=== PATIENT | female | born 1995 | race Caucasian/White ===

== ENCOUNTER → 2022-01-02 15:34 | Outpatient (CLI) | payer OTHER, SELFPAY ==
--- NOTE | 2022-01-02 15:35 | DI.US.S_ITS ---
PROCEDURE: US OB <= 14 WEEKS FETUS INDICATIONS: DATES OUTSIDE/PRIOR DATING DATA: Last menstrual period (LMP): 10/15/2021. LMP-based estimated date of delivery ([place]): 07/22/2022. First dating scan (date and location): 01/02/2022 at . Estimated date of delivery ([place]) from first dating scan: 07/25/2022. TECHNIQUE: Real-time scanning was performed of the fetus and maternal pelvic organs, with image documentation. Endovaginal scanning was also performed to better visualize the fetus and maternal ovaries. COMPARISON: None. FINDINGS: There is a single living IUP with an estimated gestational age 10 weeks 6 days. heart tone is present with heart rate 165 BPM. There is a normal appearing yolk sac. No perigestational bleed. Maternal organs: Ovaries are not imaged. IMPRESSION: 1. A single living intrauterine gestation with an estimated gestational age of 10 weeks 6 days corresponding to ultrasound [place] 07/25/2022. We strive to produce accurate, complete, and clear reports of imaging services. To assist us in improving patient care, this report was composed using standard report templates and voice recognition software. Therefore, it may contain abnormal punctuation, insertions and/or omissions. Occasional wrong-word or sound-alike substitutions may occur. Though we review the report and make efforts to correct it, we do recommend that the report be read carefully in proper context to recognize any text inaccuracies. Dictated by: Dayton Paige M.D. on 01/02/2022 at 17:54 Approved by: Dayton Paige M.D. on 01/02/2022 at 17:57
== END ==
PROVIDERS: Referring Provider Obstetrics & Gynecology; Visit Provider Obstetrics & Gynecology
DX: Z34.81 Encounter for supervision of other normal pregnancy, first trimester (principal); Z3A.10 10 weeks gestation of pregnancy
CPT/HCPCS: 76801; 76817

== ENCOUNTER → 2022-01-21 10:15 | Outpatient (CLI) | payer OTHER, SELFPAY ==
[2022-01-21 18:32] LABS: Add Manual Diff / Slide Review NO; Basophils Absolute Auto 0 /uL (0-100); Basophils Percent Auto 0.4 % (0-2); Eosinophils Absolute Auto 100 /uL (0-450); Eosinophils Percent Auto 0.8 % (2-4); Hematocrit 32.5 % (36-46); Hemoglobin 10.7 g/dL (12.0-16.0); Lymphocytes Absolute Auto 1000 /uL (1100-4500); Lymphocytes Percent Auto 15.9 % (25-40); Mean Corpuscular Hemoglobin 24.9 PG (26-34); Mean Corpuscular Volume 75.5 fL (80-100); Monocytes Absolute Auto 400 /uL (0-900); Monocytes Percent Auto 6.4 % (3-14); Neutrophils Absolute Auto 4900 /uL (1500-7000); Neutrophils Percent Auto 76.5 % (50-75); Platelet Count 184 X10^3/uL (150-400); Red Blood Cell Count 4.31 X10^6/uL (4.0-5.2); Red Cell Distribution Width 19.4 % (11.6-14.8); White Blood Cell Count 6.4 X10^3/uL (4.5-11.0)
[2022-01-21 20:11] LABS: HIV 1 & 2 Ab/Ag 4th Gen Combo NEGATIVE (NEGATIVE); Hep C Virus Ab w/Reflex Quant NEGATIVE s/c (NEGATIVE); Hepatitis B Surface Antigen NEGATIVE s/c (NEGATIVE); Rubella Antibody IgG 1.4 IU/mL (>15)
[2022-01-23 05:34] LABS: RPR Screen Non Reactive (Non Reactive)
[2022-01-23 09:09] LABS: Varicella IgG Antibody <135 index (Immune >165)
== END ==
PROVIDERS: Referring Provider Obstetrics & Gynecology; Visit Provider Obstetrics & Gynecology
DX: Z34.81 Encounter for supervision of other normal pregnancy, first trimester (principal)
CPT/HCPCS: 36415; 80055; 86787; 86803; 86850; 86900; 86901; 87389

== ENCOUNTER → 2022-03-13 15:04 | Outpatient (CLI) | payer OTHER, SELFPAY ==
--- NOTE | 2022-03-13 15:05 | DI.US.S_ITS ---
PROCEDURE: US OB >= 14 WEEKS FETUS INDICATIONS: 20 week anatomy scan OUTSIDE/PRIOR DATING DATA: Last menstrual period (LMP): 10/15/2021 LMP-based estimated date of delivery ([place]): 07/22/2022 First dating scan (date and location): 01/02/2022 Estimated date of delivery ([place]) from first dating scan: 07/25/2022 The calculations are made using the study generated [place]TE of 07/25/2022. TECHNIQUE: Real-time scanning was performed of the fetus, with image documentation and biometric measurements. Endovaginal scanning: Not indicated COMPARISON: [facility], OB <= 14 WEEKS FETUS, 01/02/2022, 15:39. FINDINGS: General: A single living intrauterine gestation is present. Presentation: Vertex. Placenta: Placental position is anterior, without previa. Amniotic fluid index: 11.3 cm, normal range is 5-24 cm. Single deepest vertical pocket is 4.8 cm. heart rate: 152 beats per minute. Maternal cervical canal: 3.2 cm long. Normal lower limit is 2.5 cm. biometrics: Biparietal diameter: 4.8 cm, 20 weeks, 3 days. Head circumference: 18.1 cm, 20 weeks, 4 days. Abdominal circumference: 15.5 cm, 20 weeks, 5 days. Femur length: 3.8 cm, 22 weeks, 1 day Clinically estimated gestational age: 20 weeks, 6 days Composite gestational age from present scan: 21 weeks, 0 day. Estimated weight and percentile: Not evaluated. Anatomic survey: Neuro: Ventricles are non-dilated at less than 10 mm. Cisterna magna is normal at 3-11 mm. Cerebellum is normal in size and morphology. Nuchal skin fold: Normal at less than 6 mm between 14-21 weeks gestational age. Face: Nose and lips, facial profile are not well seen. Spine: No evidence for spina bifida. Heart: 4-chambered heart and outflow tracts are not well seen. Diaphragm: Diaphragm is not well seen. Stomach: Left-sided stomach is present. Kidneys: No hydronephrosis. Normal is less than 5 mm in 2nd trimester, less than 7 mm in 3rd trimester. Cord: 3-vessel cord has orthotopic insertion. Bladder: Normal in size. Extremities: All 4 extremities identified. IMPRESSION: 1. Single live intrauterine gestation with fetus in vertex presentation. heart rate is 152 beats per minute. Normal amount of amniotic fluid. Normal growth. 2. facial profile, cardiac structures and diaphragm are suboptimally seen due to position. Rest of the anatomic survey is normal. We strive to produce accurate, complete, and clear reports of imaging services. To assist us in improving patient care, this report was composed using standard report templates and voice recognition software. Therefore, it may contain abnormal punctuation, insertions and/or omissions. Occasional wrong-word or sound-alike substitutions may occur. Though we review the report and make efforts to correct it, we do recommend that the report be read carefully in proper context to recognize any text inaccuracies. Dictated by: Jarret Castillo M.D. on 03/13/2022 at 16:16 Approved by: Jarret Castillo M.D. on 03/13/2022 at 16:19
== END ==
PROVIDERS: Referring Provider Obstetrics & Gynecology; Visit Provider Obstetrics & Gynecology
DX: Z34.82 Encounter for supervision of other normal pregnancy, second trimester (principal); Z3A.21 21 weeks gestation of pregnancy
CPT/HCPCS: 76811

== ENCOUNTER → 2022-03-21 08:22 | Outpatient (CLI) | payer OTHER, SELFPAY | PROVIDERS: Visit Provider Obstetrics & Gynecology | DX: Z34.81 Encounter for supervision of other normal pregnancy, first trimester (principal) | CPT/HCPCS: 87086 ==

== ENCOUNTER → 2022-04-05 15:41 | Outpatient (CLI) | payer OTHER, SELFPAY ==
--- NOTE | 2022-04-05 15:42 | DI.US.S_ITS ---
PROCEDURE: US OB FOLLOW UP INDICATIONS: FOLLOW UP ANATOMY OUTSIDE/PRIOR DATING DATA: Last menstrual period (LMP): 10/15/2021. LMP-based estimated date of delivery ([place]): 07/22/2022. First dating scan (date and location): 01/02/2022. Estimated date of delivery ([place]) from first dating scan: 07/25/2022. The calculations are made using the ultrasound [place]TE of 07/25/2022. TECHNIQUE: Real-time scanning was performed of the fetus, with image documentation. COMPARISON: [facility], US, US OB >= 14 WEEKS FETUS, 03/13/2022, 15:22. FINDINGS: General: A single living intrauterine gestation is present. Presentation: Variable. Placenta: Placental position is anterior, without previa. Amniotic fluid index: 16.2 cm, normal range is 5-24 cm. Single deepest vertical pocket is 5.6 cm. heart rate: 145 beats per minute. Maternal cervical canal: 3.8 cm long. Normal lower limit is 2.5 cm. Clinically estimated gestational age: 24 weeks 4 days Face: Nose and lips, facial profile are grossly normal. Heart: Not well seen. Due to body habitus and acoustic windows. Diaphragm: Diaphragm is intact. IMPRESSION: 1. [place] living intrauterine at 24 weeks 4 days based on prior dating. 2. Normal placenta and amniotic fluid. 3. facial structures and diaphragm are normal in appearance. The cardiac structures are again not well seen. We strive to produce accurate, complete, and clear reports of imaging services. To assist us in improving patient care, this report was composed using standard report templates and voice recognition software. Therefore, it may contain abnormal punctuation, insertions and/or omissions. Occasional wrong-word or sound-alike substitutions may occur. Though we review the report and make efforts to correct it, we do recommend that the report be read carefully in proper context to recognize any text inaccuracies. Dictated by: Daniel Urena M.D. on 04/05/2022 at 17:10 Approved by: Daniel Urena M.D. on 04/05/2022 at 17:14
== END ==
PROVIDERS: Referring Provider Obstetrics & Gynecology; Visit Provider Obstetrics & Gynecology
DX: Z36.2 Encounter for other antenatal screening follow-up (principal); Z3A.24 24 weeks gestation of pregnancy
CPT/HCPCS: 76816

== ENCOUNTER → 2022-04-18 11:17 | Outpatient (CLI) | payer OTHER, SELFPAY | PROVIDERS: Visit Provider Obstetrics & Gynecology | DX: Z34.82 Encounter for supervision of other normal pregnancy, second trimester (principal); Z3A.26 26 weeks gestation of pregnancy | CPT/HCPCS: 87086 ==

== ENCOUNTER → 2022-04-18 11:18 | Outpatient (CLI) | payer OTHER, SELFPAY ==
[2022-04-18 13:42] LABS: Hematocrit 33.7 % (36-46); Hemoglobin 11.4 g/dL (12.0-16.0)
[2022-04-18 14:29] LABS: GTT (PREG) 1 Hour PP 50gm Dose 93 mg/dL (76-139)
[2022-04-18 19:40] LABS: HEMOLYSIS < 15 (0-50); Iron 63 ug/dL (37-170)
[2022-04-18 19:50] LABS: Percent Iron Saturation 15 % (15-50); Total Iron Binding Capacity 413 ug/dL (265-497); Transferrin 330 mg/dL (206-381)
== END ==
PROVIDERS: Obstetrics & Gynecology; Referring Provider Obstetrics & Gynecology; Visit Provider Obstetrics & Gynecology
DX: O99.012 Anemia complicating pregnancy, second trimester (principal); Z3A.26 26 weeks gestation of pregnancy
CPT/HCPCS: 36415; 82950; 83540; 83550; 85014; 85018; 87086

== ENCOUNTER → 2022-05-08 15:49 | Outpatient (CLI) | payer OTHER, SELFPAY ==
--- NOTE | 2022-05-08 15:50 | DI.US.S_ITS ---
PROCEDURE: US OB FOLLOW UP INDICATIONS: Anatomy scans incomplete OUTSIDE/PRIOR DATING DATA: Last menstrual period (LMP): 10/15/2021. LMP-based estimated date of delivery ([place]): 07/22/2022. First dating scan (date and location): 01/02/2022. Estimated date of delivery ([place]) from first dating scan: 07/25/2022. TECHNIQUE: Real-time scanning was performed of the fetus, with image documentation and biometric measurements. Endovaginal scanning: None COMPARISON: [facility], OB FOLLOW UP, 04/05/2022, 16:05. FINDINGS: General: A single living intrauterine gestation is present. Presentation: Vertex. Placenta: Placental position is anterior , without previa. Amniotic fluid index: 14.4 cm, normal range is 5-24 cm. Single deepest vertical pocket is 4.2 cm. heart rate: 139 beats per minute. Maternal cervical canal: 3.3 cm long. Normal lower limit is 2.5 cm. Anatomic survey: Left ventricular echogenic focus noted. Cardiac views are otherwise within normal limits mint P. Remaining visualized anatomy unremarkable IMPRESSION: Single live intrauterine consistent with 29 week 2 day gestation. Suggestion of left ventricular echogenic focus in. Otherwise, cardiac views are within normal limits Approved by: Gil Maher M.D. on 05/08/2022 at 16:38
== END ==
PROVIDERS: Referring Provider Obstetrics & Gynecology; Visit Provider Obstetrics & Gynecology
DX: Z36.2 Encounter for other antenatal screening follow-up (principal); Z3A.29 29 weeks gestation of pregnancy
CPT/HCPCS: 76816

== ENCOUNTER → 2022-05-27 15:22 | Outpatient (CLI) | payer OTHER, SELFPAY ==
[2022-05-27 17:18] LABS: Alanine Aminotransferase 19 IU/L (<35); Albumin 3.4 g/dL (3.5-5.0); Alkaline Phosphatase 117 U/L (38-126); Aspartate Aminotransferase 20 IU/L (14-36); BUN Creatinine Ratio 27.9 (6-22); Bilirubin Total 0.3 mg/dL (0.2-1.3); Blood Urea Nitrogen 12 mg/dL (7-17); Calcium 9.2 mg/dL (8.4-10.2); Carbon Dioxide 23 mmol/L (22-32); Chloride 105 mmol/L (98-107); Estimated Glomerular Filt Rate > 60 mL/min (>60); Globulin 3.2 g/dL (1.7-4.1); Glucose 82 mg/dL (70-100); HEMOLYSIS < 15 (0-50); Potassium 4.2 mmol/L (3.4-5.1); Sodium 134 mmol/L (137-145); Total Protein 6.6 g/dL (6.3-8.2)
[2022-05-27 17:19] LABS: Albumin Globulin Ratio 1.1 (1.0-2.8)
== END ==
PROVIDERS: Referring Provider Physician Assistant Medical; Visit Provider Physician Assistant Medical
DX: O99.719 Diseases of the skin and subcutaneous tissue complicating pregnancy, unspecified trimester (principal); L29.9 Pruritus, unspecified
CPT/HCPCS: 36415; 80053; 82239

== ENCOUNTER 2022-06-06 16:19 | Outpatient (CLI) | payer OTHER, SELFPAY ==
[2022-06-09 13:28] LABS: Bile Acids 2.2 umol/L (0.0-10.0)
[2022-06-17 18:02] LABS: Appearance Urine UA CLEAR; Bilirubin Urine UA NEGATIVE (NEGATIVE); Color Urine UA YELLOW; Glucose Urine UA NEGATIVE (Negative); Ketones Urine UA NEGATIVE (NEGATIVE); Leukocyte Esterase Urine UA NEGATIVE (NEGATIVE); Nitrite Urine UA NEGATIVE (Negative); Occult Blood Urine UA TRACE-INTACT (Negative); Protein Urine UA NEGATIVE (Negative); Specific Gravity Urine UA <=1.005 (1.000-1.035); Urobilinogen Urine UA 0.2 E.U./dL (0.2)
[2022-06-17 18:08] LABS: pH Urine UA 6.5 (4.5-8.0)
[2022-06-17 18:18] LABS: Bacteria Urine Few (2-10); Culture Indicated Urine Cult Not Indicated; RBC Urine 1-5/HPF (0-5/HPF); Squamous Epithelial Cell Urine 5-10 /HPF (0-5/HPF); WBC Urine 1-5/HPF (0-5/HPF)
[2022-06-17] MEDS: LOPERAMIDE 2 MG CAPSULE 4 MG PO (19:36)
== END 2022-06-17 19:57 | disposition home or self-care (01) ==
LOC: LAB 16:50 → LABOR 06-17 17:47
PROVIDERS: Obstetrics & Gynecology; Referring Provider Physician Assistant Medical; Visit Provider Physician Assistant Medical
DX: Z34.83 Encounter for supervision of other normal pregnancy, third trimester (principal); Z3A.32 32 weeks gestation of pregnancy
CPT/HCPCS: 36415; 81001; 82239

== ENCOUNTER 2022-06-13 20:23 | Outpatient (CLI) | payer OTHER, SELFPAY ==
--- NOTE | 2022-06-13 21:22 | PM.OBTRLD ---
Visit Information Visit Information Date of evaluation: 06/13/22 Primary OB Provider: Isauro Romano On-call OB Provider: Lyly Rodriguez Reason for Evaluation: Yes pre-term labor Comments/Additional reasons for admission: Patient complaining of abdominal cramping, shaking chills. Vital Signs Vital Signs: Blood pressure 114/57, pulse 112, temperature 97.9? REPLACED BY [facility] Medical History (Updated 06/13/22 @ 21:27 by Lyly Rodriguez MD) Abnormal Pap smear of cervix (~2020) Acne (~2010) Depression (~2020) Headache (~2010) Human papilloma virus (~2020) Migraine with aura, not intractable (~2010) depression Restless leg syndrome (~2020) Syncope Surgical History (Updated 02/19/22 @ 21:56 by Apoorva Harris) Anesthesia History of surgery (~01/02/21) No pertinent past surgical history Family History (Updated 02/19/22 @ 22:00 by Apoorva Harris) Father Hypertension Myocardial infarction Mother Hypertension Mental health problem Grandmother Hypertension Skin cancer History of nephrectomy Coronary artery disease Cancer Mental health problem Grandfather Myocardial infarction Grandmother Diabetes mellitus Hyperlipidemia Hypertension Grandfather Myocardial infarction Sister Asthma Social History marital status: number of children: 1 household members: spouse and children lives independently: Yes housing: house pets and animals: Yes (1 dog; aware of toxo precautions) education level: college ([employer] degree) occupational status: unemployed current occupational exposures/hazards: No special herb needs: No travel history: recent (domestic cross-country move from [place]) seatbelt use: always water heater temp set < 120 deg: Yes working smoke detector in home: Yes fire extinguisher in home: Yes carbon monox detector in home: Yes firearms in home: No do you feel safe at home: Yes Smoking Status: Never smoker second hand exposure: No alcohol intake: former (1-2/week when not ) substance use type: does not use during the past year weight has: other (fluctuates; only now ~1 year ) well-balanced diet: daily or most days daily servings fruits/ve-4 caffeine: Yes (0-1 cups coffee/day; aware of 200mg limit) Type(s) of exercise: walking frequency: daily duration: 15-30 minutes/day Review of Systems Review of Systems Narrative: Patient complained of shaking chills. She does not have a thermometer to check her temperature. She is having lower abdominal cramping no vaginal bleeding, no unusual vaginal discharge, good movement. She is feeling somewhat nauseated. She denies being around anyone else who has been ill. Exam Narrative Exam Narrative: Patient's abdomen is soft, nontender. Urine appears concentrated. Evaluation Evaluation Baseline heart rate: 150 Variability: Moderate (11-25) monitor accelerations: Present Monitor Decelerations: Absent Contraction Frequency (minutes): 0 Category of Tracing: Reactive Diagnosis, Plan/Disposition Final Diagnosis (1) False labor: Status: Acute Plan/Disposition Plan: Patient is to push fluids. Call if her symptoms worsen. OB Disposition: home
[2022-06-13] MEDS: LACTATED RINGERS 1,000 ML 1000 ML IV ×2 (22:05→23:27)
[2022-06-13 22:20] VITALS: BP 114/74
[2022-06-13] MEDS: ONDANSETRON 4 MG/2 ML INJ IV (22:33)
== END 2022-06-14 00:34 | disposition home or self-care (01) ==
LOC: OB 06-24 08:52
PROVIDERS: Referring Provider Specialist; Visit Provider Specialist
DX: O47.03 False labor before 37 completed weeks of gestation, third trimester (principal); O26.893 Other specified pregnancy related conditions, third trimester; R11.2 Nausea with vomiting, unspecified; R19.7 Diarrhea, unspecified; Z3A.34 34 weeks gestation of pregnancy
CPT/HCPCS: 59025; 59050; 96360; 96361; G0378; G0379; J2405

== ENCOUNTER 2022-06-17 17:45 | Observation (INO) | payer OTHER, SELFPAY ==
--- NOTE | 2022-06-17 20:22 | PM.OBTRLD ---
Visit Information Visit Information Date of evaluation: 06/17/22 Primary OB Provider: Isauro Romano On-call OB Provider: Karishma Pereira Comments/Additional reasons for admission: 26yo at 34w6d here with diarrhea. Pt reports having persistent diarrhea since 06/13. She states she initially had nausea and vomiting as well, but this had resolved. Her stools do have some solid components, but are very loose/liquidy. She denies any blood in them. No fevers or chills. She denies significant abdominal pain. They are not particularly foul-smelling. [facility] Medical History (Updated 06/17/22 @ 23:51 by Karishma Pereira MD) Abnormal Pap smear of cervix (~2020) Acne (~2010) Depression (~2020) Headache (~2010) Human papilloma virus (~2020) Migraine with aura, not intractable (~2010) depression Restless leg syndrome (~2020) Syncope Surgical History (Updated 02/19/22 @ 21:56 by Apoorva Harris) Anesthesia History of surgery (~01/02/21) No pertinent past surgical history Family History (Updated 02/19/22 @ 22:00 by Apoorva Harris) Father Hypertension Myocardial infarction Mother Hypertension Mental health problem Grandmother Hypertension Skin cancer History of nephrectomy Coronary artery disease Cancer Mental health problem Grandfather Myocardial infarction Grandmother Diabetes mellitus Hyperlipidemia Hypertension Grandfather Myocardial infarction Sister Asthma Social History marital status: number of children: 1 household members: spouse and children lives independently: Yes housing: house pets and animals: Yes (1 dog; aware of toxo precautions) education level: college ([employer] degree) occupational status: unemployed current occupational exposures/hazards: No special herb needs: No travel history: recent (domestic cross-country move from [place]) seatbelt use: always water heater temp set < 120 deg: Yes working smoke detector in home: Yes fire extinguisher in home: Yes carbon monox detector in home: Yes firearms in home: No do you feel safe at home: Yes Smoking Status: Never smoker second hand exposure: No alcohol intake: former (1-2/week when not ) substance use type: does not use during the past year weight has: other (fluctuates; only now ~1 year ) well-balanced diet: daily or most days daily servings fruits/ve-4 caffeine: Yes (0-1 cups coffee/day; aware of 200mg limit) Type(s) of exercise: walking frequency: daily duration: 15-30 minutes/day Evaluation Evaluation Baseline heart rate: 120 Variability: Moderate (11-25) monitor accelerations: Present Monitor Decelerations: Absent Category of Tracing: Reactive Diagnosis, Plan/Disposition Final Diagnosis (1) Diarrhea: Status: Acute Plan/Disposition Plan: 26yo at 34w6d here with diarrhea. Most likely with viral gastroenteritis, as began with nausea/vomiting as well. Pt not tachycardic, no evidence of significant dehydration. Symptoms and consistency of stool not consistent with C diff, and pt without any risks factors for such. Discussed stool testing for infectious causes, including PCR vs culture, or watchful waiting. Pt does not feel additional testing needed at this time. Okay for Loperamide PRN. If stools not improving in the next 2 days, pt will contact her PCP for additional work-up. OB Disposition: home
== END 2022-06-17 20:35 | disposition home or self-care (01) ==
PROVIDERS: Admitting Provider Family Medicine; Referring Provider Family Medicine; Visit Provider Family Medicine
DX: O26.893 Other specified pregnancy related conditions, third trimester (principal); R19.7 Diarrhea, unspecified; Z3A.34 34 weeks gestation of pregnancy
CPT/HCPCS: 59025; 59050; G0378; G0379

== ENCOUNTER → 2022-06-26 16:53 | Outpatient (CLI) | payer OTHER, SELFPAY ==
[2022-06-27 14:45] LABS: Strep Grp B PCR NEG for Grp B Strep
== END ==
PROVIDERS: Visit Provider Obstetrics & Gynecology
DX: Z34.83 Encounter for supervision of other normal pregnancy, third trimester (principal); Z3A.36 36 weeks gestation of pregnancy
CPT/HCPCS: 87653

== ENCOUNTER → 2022-06-26 17:03 | Outpatient (CLI) | payer OTHER, SELFPAY ==
[2022-06-26 18:33] LABS: Alanine Aminotransferase 279 IU/L (<35); Alkaline Phosphatase 146 U/L (38-126); Aspartate Aminotransferase 120 IU/L (14-36); Bilirubin Total 0.5 mg/dL (0.2-1.3); Bilirubin Unconjugated 0.2 mg/dL (0.0-1.1); Globulin 3.1 g/dL (1.7-4.1); HEMOLYSIS < 15 (0-50); Total Protein 6.1 g/dL (6.3-8.2)
[2022-06-28 10:36] LABS: Bile Acids 8.1 umol/L (0.0-10.0)
== END ==
PROVIDERS: Referring Provider Obstetrics & Gynecology; Visit Provider Obstetrics & Gynecology
DX: O99.713 Diseases of the skin and subcutaneous tissue complicating pregnancy, third trimester (principal); L29.9 Pruritus, unspecified; Z3A.36 36 weeks gestation of pregnancy
CPT/HCPCS: 36415; 80076; 82239; 87653

== ENCOUNTER → 2022-07-03 14:26 | Outpatient (CLI) | payer OTHER, SELFPAY ==
[2022-07-03 16:03] LABS: Alanine Aminotransferase 80 IU/L (<35); Albumin 3.6 g/dL (3.5-5.0); Albumin Globulin Ratio 1.1 (1.0-2.8); Alkaline Phosphatase 145 U/L (38-126); Aspartate Aminotransferase 30 IU/L (14-36); Bilirubin Total 0.3 mg/dL (0.2-1.3); Bilirubin Unconjugated 0.1 mg/dL (0.0-1.1); Globulin 3.3 g/dL (1.7-4.1); HEMOLYSIS < 15 (0-50); Total Protein 6.9 g/dL (6.3-8.2)
[2022-07-04 16:40] LABS: Hepatitis B Surface Antigen NEGATIVE s/c (NEGATIVE)
[2022-07-04 18:01] LABS: Hep C Virus Ab w/Reflex Quant NEGATIVE s/c (NEGATIVE)
== END ==
PROVIDERS: Referring Provider Obstetrics & Gynecology; Visit Provider Obstetrics & Gynecology
DX: R74.01 Elevation of levels of liver transaminase levels (principal)
CPT/HCPCS: 36415; 80076; 86803; 87340

== ENCOUNTER → 2022-07-10 14:47 | Outpatient (CLI) | payer OTHER, SELFPAY ==
[2022-07-10 17:09] LABS: Alanine Aminotransferase 25 IU/L (<35); Albumin 3.5 g/dL (3.5-5.0); Albumin Globulin Ratio 1.3 (1.0-2.8); Alkaline Phosphatase 138 U/L (38-126); Aspartate Aminotransferase 20 IU/L (14-36); Bilirubin Total 0.3 mg/dL (0.2-1.3); Globulin 2.8 g/dL (1.7-4.1); HEMOLYSIS < 15 (0-50); Total Protein 6.3 g/dL (6.3-8.2)
== END ==
PROVIDERS: Referring Provider Obstetrics & Gynecology; Visit Provider Obstetrics & Gynecology
DX: R74.01 Elevation of levels of liver transaminase levels (principal)
CPT/HCPCS: 36415; 80076

== ENCOUNTER 2022-07-24 11:47 | Outpatient (CLI) | payer OTHER, SELFPAY | END 2022-07-24 12:35 | disposition home or self-care (01) | LOC: LABOR 13:47 → OB 07-25 10:30 | PROVIDERS: Referring Provider Obstetrics & Gynecology; Visit Provider Obstetrics & Gynecology | DX: O48.0 Post-term pregnancy (principal); Z3A.40 40 weeks gestation of pregnancy | CPT/HCPCS: 59025; 84112; G0378; G0379 ==

== ENCOUNTER 2022-07-26 07:02 | Inpatient (IN) | payer OTHER, SELFPAY ==
--- NOTE | 2022-07-26 07:55 | P.HPOB_ITS ---
OB HPI Date/Time Date of admission: 07/26/22 Date Patient Seen: 07/26/22 Time Patient Seen: 07:55 History of Present Condition Chief complaint: IUP, 40+3wks EGA, admitted for induction of labor : 3 Para: 1 Estimated Date of Delivery: 07/23/22 Estimated Gestational Age (weeks): 40+3 Narrative: Sophy Martell is a 26 year old admitted now at 40+ 3 weeks gestational age for induction due to extreme maternal discomfort. Her course has been largely uneventful with the exception of pruritus in the 3rd trimester associated with transient elevation of her hepatic transaminase levels but her bile acid levels were normal. Both her itching has resolved with Ursodiol and her liver function studies have returned to normal. Dating is firm and patient has met appropriate milestones throughout her . GBS is negative. Indications Indication for induction OB: other (Maternal discomfort) and post dates History of Present care: good care Dating criteria: LMP confirmed by 1st trimester US Ultrasounds: normal 1st trimester US and normal mid trimester US Obstetrical complications: none Medical complications: none Preadmission Labs Blood type: A (+) positive -: Antibody screen: negative, GBS status: negative, HBsAG: negative, HIV: negative and RPR/VDLR: negative -: Chlamydia screen: not detected and Gonorrhea screen: not detected -: Rubella: not immune and Varicella: not immune HCT: 29.7 HCAB: negative PAP: Normal Quad screen: Normal (AFP testing negative for open neural tube defects) Cell-free DNA: Low risk female Prior (ies) History: x1 Evaluation Evaluation Baseline heart rate: 145 Variability: Moderate (11-25) monitor accelerations: Present Monitor Decelerations: Absent Contraction Frequency (minutes): 5 Uterine Contraction Intensity: Mild Category of Tracing: Reactive Status: Category l Dilation (cm): 2 Effacement (%): 80 Dilation: 1-2 cm Effacement: >/=80% station: 0 Position of cervix: mid Consistency: soft Post score: 9 [facility] Medical History (Updated 07/19/22 @ 15:24 by Isauro Romano MD) Abnormal Pap smear of cervix (~2020) Acne (~2010) Depression (~2020) Headache (~2010) Human papilloma virus (~2020) Migraine with aura, not intractable (~2010) depression Restless leg syndrome (~2020) Syncope Surgical History (Updated 02/19/22 @ 21:56 by Apoorva Harris) Anesthesia History of surgery (~01/02/21) No pertinent past surgical history Family History (Updated 02/19/22 @ 22:00 by Apoorva Harris) Father Hypertension Myocardial infarction Mother Hypertension Mental health problem Grandmother Hypertension Skin cancer History of nephrectomy Coronary artery disease Cancer Mental health problem Grandfather Myocardial infarction Grandmother Diabetes mellitus Hyperlipidemia Hypertension Grandfather Myocardial infarction Sister Asthma Social History marital status: number of children: 1 household members: spouse and children lives independently: Yes housing: house pets and animals: Yes (1 dog; aware of toxo precautions) education level: college ([employer] degree) occupational status: unemployed current occupational exposures/hazards: No special herb needs: No travel history: recent (domestic cross-country move from [place]) seatbelt use: always water heater temp set < 120 deg: Yes working smoke detector in home: Yes fire extinguisher in home: Yes carbon monox detector in home: Yes firearms in home: No do you feel safe at home: Yes Smoking Status: Never smoker second hand exposure: No alcohol intake: former (1-2/week when not ) substance use type: does not use during the past year weight has: other (fluctuates; only now ~1 year ) well-balanced diet: daily or most days daily servings fruits/ve-4 caffeine: Yes (0-1 cups coffee/day; aware of 200mg limit) Type(s) of exercise: walking frequency: daily duration: 15-30 minutes/day Meds Home Medications and Allergies Home Medications Medication Instructions Recorded Confirmed Type prenat.vits,ayesha,hoz-yeyu-llckn 1 tab PO DAILY 02/20/22 07/26/22 History ferrous sulfate 325 mg (65 mg 325 mg PO DAILY 03/21/22 07/26/22 History iron) tablet (Feosol) sumatriptan succinate 50 mg tablet See Rx Instructions PO .COMPLEX 04/11/22 07/26/22 Rx #10 tabs ursodiol 300 mg capsule 300 mg PO TID #90 caps 06/26/22 07/26/22 Rx Allergies Allergy/AdvReac Type Severity Reaction Status Date / Time No Known Drug Allergies Allergy Verified 07/03/22 14:02 Review of Systems Review of Systems Narrative: Problem-specific ROS positives included in HPI OB Exam Vital signs Blood Pressure: 134/63 Pulse Rate: 97 Temperature: 36.2 F HENMT Head: normal to inspection, normocephalic and atraumatic Eyes General: appearance normal, both eyes and all related structures Resp Effort & Inspection: normal respiratory effort and able to speak in complete sentences Auscultation: clear to auscultation bilaterally Cardio Rate: regular rate Rhythm: regular rhythm Heart Sounds: S1 normal, S2 normal and no murmurs Extremities Lower extremity: Yes normal to inspection GI Inspection: normal to inspection Palpation: Yes soft and Yes no hepatosplenomegaly Uterus Location (Fundal Height): 42 Presentation: vertex Estimated Weight (lbs): 9 Objective Labs 07/26/22 09:20 07/26/22 09:57 Assessment and Plan Assessment and Plan Assessment and Plan narrative: ASSESSMENT 1. Intrauterine , 40+ 3 weeks gestational age 2. Post dates 3. Morbid obesity 4. GBS negative status PLAN 1. Admit 2. See admission orders
[2022-07-26] MEDS: OXYTOCIN PREMIX 30 UNIT/500 ML PLAST..BAG IV (09:44)
[2022-07-26] MEDS: LACTATED RINGERS 1,000 ML 100 ML IV ×3 (09:45→23:42)
[2022-07-26 09:55] LABS: Add Manual Diff / Slide Review NO; Basophils Absolute Auto 0 /uL (0-100); Basophils Percent Auto 0.3 % (0-2); Eosinophils Absolute Auto 100 /uL (0-450); Hematocrit 29.7 % (36-46); Lymphocytes Absolute Auto 1200 /uL (1100-4500); Mean Corpuscular HGB Conc 33.8 % (30-36); Mean Corpuscular Hemoglobin 27.9 PG (26-34); Mean Corpuscular Volume 82.6 fL (80-100); Monocytes Absolute Auto 400 /uL (0-900); Monocytes Percent Auto 7.1 % (3-14); Neutrophils Absolute Auto 4000 /uL (1500-7000); Neutrophils Percent Auto 70.6 % (50-75); Platelet Count 162 X10^3/uL (150-400); Red Blood Cell Count 3.59 X10^6/uL (4.0-5.2); Red Cell Distribution Width 15.8 % (11.6-14.8); White Blood Cell Count 5.6 X10^3/uL (4.5-11.0)
--- NOTE | 2022-07-26 10:54 | CM.SWNOTE ---
ROLL WRAPPER Note Consult request received. Discussed with Center nurse Quita and then with RN Hilda Crystal, Care management dept Reportedly, mom to be Sophy and father to be Brent (active duty [place]) state concern about money running out which triggered the ROLL WRAPPER consult. This couple also has a 6 yo in the house In addition, Quita reports that mom has hx of clinical depression and depression. Mom had been on anti-depressants during her until side effects became too uncomfortable (this per RN Quita) and so mom stopped Mom Sophy would benefit from a conversation w/provider and RN re restarting anti-depressants after labor to help/prevent sx of PPD Mom being induced today and has not given Hilda Crystal RN/DC Research Environmental Scientist agreed to see mom tomorrow to review above and discuss family resources and active duty [place]/spouse family resources LOC [place]
[2022-07-26 11:00] LABS: Alanine Aminotransferase 23 IU/L (<35); Albumin 3.3 g/dL (3.5-5.0); Albumin Globulin Ratio 1.1 (1.0-2.8); Alkaline Phosphatase 160 U/L (38-126); Aspartate Aminotransferase 24 IU/L (14-36); Bilirubin Total 0.3 mg/dL (0.2-1.3); Blood Urea Nitrogen 11 mg/dL (7-17); Calcium 8.7 mg/dL (8.4-10.2); Carbon Dioxide 20 mmol/L (22-32); Chloride 107 mmol/L (98-107); Estimated Glomerular Filt Rate > 60 mL/min (>60); Globulin 3.1 g/dL (1.7-4.1); Glucose 118 mg/dL (70-100); HEMOLYSIS < 15 (0-50); Potassium 3.6 mmol/L (3.4-5.1); Sodium 133 mmol/L (137-145); Total Protein 6.4 g/dL (6.3-8.2)
[2022-07-26 11:24] VITALS: BP 134/63; PULSE 97; TEMP 2.3; TEMP 36.2
--- NOTE | 2022-07-26 16:28 | PM.OBPNLAB ---
Date/Time Date Patient Seen: 07/26/22 Time Patient Seen: 16:28 Pain Control Pain control: tolerating well and epidural Pelvic Exam Dilation (cm): 2 Effacement (%): 90 station: 0 Amniotic membrane status: Intact Comments: Patient again declines option of AROM. Cervix has rotated anterior and is soft with vertex at 0 station. Position indeterminate. Contractions Contractions on admission: none Monitor mode: External Pitocin rate (mU/min): 9 Contraction frequency (min): 2 Contraction duration (min): 1 Contraction pattern: Regular Contraction phase: Resting Contraction intensity: Mild Status status: Category l Heart Rate Baseline: 150 Monitor Accelerations: Present Monitor Decelerations: Absent Monitor Variability: Moderate Assessment and Plan Assessment: induction ongoing Plan: continuous present management Comments: Will continue induction and AROM when agreeable to the patient. Call responsibilities will be assumed by Dr. Lyly Rodriguez at 1700 and she has been briefed on patient's history/current status/current plans for induction.
[2022-07-26] MEDS: miSOPROStoL 25 MCG TABLET 50 MCG PO (22:12)
[2022-07-27] MEDS: miSOPROStoL 25 MCG TABLET 50 MCG PO (04:08)
[2022-07-27] MEDS: LACTATED RINGERS 1,000 ML 100 ML IV (04:12)
[2022-07-27] MEDS: FENT 2MCG/ML BUPIV 0.125% EPI 200 MCG/100 ML PLAST..BAG 8 MCG EPIDURAL (07:53)
--- NOTE | 2022-07-27 08:56 | PM.OBPNLAB ---
Date/Time Date Patient Seen: 07/27/22 Time Patient Seen: 08:56 Pelvic Exam Dilation (cm): 4 Effacement (%): 80 station: -3 Amniotic membrane status: Intact Contractions Contractions on admission: irregular Monitor mode: External Contraction frequency (min): 10 Contraction duration (min): 1 Contraction pattern: Irregular Contraction phase: Resting Contraction intensity: Mild Status status: Category l Heart Rate Baseline: 125 Monitor Accelerations: Present Monitor Decelerations: Absent Monitor Variability: Moderate Assessment and Plan Assessment: induction ongoing Comments: Restart Pitocin
[2022-07-27] MEDS: OXYTOCIN PREMIX 30 UNIT/500 ML PLAST..BAG IV (09:02)
--- NOTE | 2022-07-27 14:39 | PM.OBPNLAB ---
Date/Time Date Patient Seen: 07/27/22 Time Patient Seen: 14:39 Pain Control Pain control: epidural Pelvic Exam Dilation (cm): 6 Effacement (%): 80 station: -3 Amniotic membrane status: Ruptured (clear) Contractions Contractions on admission: regular Monitor mode: External Pitocin rate (mU/min): 17 Contraction frequency (min): 2 Contraction duration (min): 1 Contraction pattern: Regular Contraction phase: Resting Contraction intensity: Moderate Status status: Category l Heart Rate Baseline: 125 Monitor Accelerations: Present Monitor Decelerations: Absent Monitor Variability: Moderate Comments: Blood pressure 120/66, pulse of 95, temperature 36.1? Assessment and Plan Assessment: induction ongoing Plan: continuous present management
--- NOTE | 2022-07-27 18:54 | PM.OBPRVD ---
Events: Labor Induction Labor & Delivery Delivery date: 07/27/22 Intrapartal Events: Deceleration Cervical ripening method: none Induction method: per pitocin protocol Delivery augmentation: pitocin Delivery monitor: external FHT and external uterine Route of delivery: Episiotomy description: None L&D Laceration Description: Perineal - 1st Degree Delivery repair: chromic (3.0) Quantitative Blood Loss: 200 Anesthesia Type: Epidural Narrative: and CNM in OR beginning a and notified by RN of patient C/C/+1 with urge to push and recurrent late decelerations. Decision was made for CNM to attend the . CNM arrived to patient pushing with Cat II FHTs and adequate epidural anesthesia. Strong maternal efforts with coaching led to NSVB of a vigorous baby girl in JOVON position. [place] was sommersaulted through a single loose nuchal cord with easy delivery of the shoulders, then placed on maternal abdomen for drying and skin to skin. After cessation of pulsation, the cord was double clamped by CNM and cut by FOB. Remaining 30 units of pitocin in 500mL LR was increased to 250mL/hr for active management of the third stage of labor. Gentle cord traction and a single maternal push led to spontaneous, Schultze delivery of an apparently intact placenta, membranes and 3VC. Fundus immediately firm and bleeding scant. A short 1st degree perineal laceration was repaired w/ 30 chromic for good approximation and hemostasis. QBL 200mL. Both mother and baby stable and skin to skin as I left the room. [place] Baby 1: Infant gender: Female Presentation: vertex Position: Right Occiput Anterior Placenta delivery description: Spontaneous Cord Vessel Description: 3 Vessels, Nuchal Cord and Loose score (1 min): 8 score (5 min): 9 Plan for aftercare: Routine care
[2022-07-27] MEDS: KETOROLAC 30 MG/ML VIAL IV (20:11)
[2022-07-27] MEDS: DERMOPLAST SPRAY 20% 60 ML 1 SPRAY TOP (21:59)
[2022-07-28] MEDS: IBUPROFEN 600 MG TABLET PO ×3 (01:13→16:38)
[2022-07-28] MEDS: ACETAMINOPHEN 325 MG TABLET 650 MG PO ×3 (01:13→16:37)
[2022-07-28] MEDS: ONDANSETRON 4 MG/2 ML INJ 8 MG IV (03:11)
[2022-07-28] MEDS: OXYCODONE IR 5 MG TABLET PO (03:11)
[2022-07-28] MEDS: MAGNESIUM HYDROXIDE 30 ML UDC PO (03:13)
[2022-07-28 07:12] LABS: Hematocrit 25.2 % (36-46); Hemoglobin 8.7 g/dL (12.0-16.0)
--- NOTE | 2022-07-28 08:48 | PM.OBDS.1 ---
Discharge Providers Provider Date of admission: 07/26/22 07:02 Discharge Date: 07/28/22 Primary care physician: Joe MARY Provider Consults: 07/26/22 07:09 Consult to Anesthesiology Urgent Comment: Consulting Provider: Isauro Romano Reason for consultation: Epidural Has provider been notified: No 07/26/22 08:26 Consult to [employer] SUPERVISOR - Vice President Of Product Marketing Routine Comment: 07/28/22 18:51 Consult to Coat Baster Routine Comment: Discharge provider: Lyly Rodriguez MD Summary Hospital Course Date Patient Seen: 07/28/22 Time Patient Seen: 08:48 Diagnoses: 40 week gestation with spontaneous vaginal delivery and repair of first-degree tear Hospital Course: Patient arrived on 07/26/2022 admitted for term with extreme maternal discomfort. She received Pitocin augmentation, epidural catheter, had spontaneous vaginal delivery with repair of first-degree tear. Patient is without difficulty. She is urinating and ambulating well. Her pain is under control. No headaches, scotomata, epigastric pain. Peripartum Data Delivery Method: Natural Vaginal Laceration Description: Perineal - 1st Degree Procedures: Pitocin induction, epidural catheter, spontaneous vaginal delivery, repair of first-degree tear. complications: none 1: Gender: Female Disposition of : home Discharge Diagnosis (1) Vaginal delivery: Status: Acute (2) Anemia: Status: Acute Status at Discharge Cognitive/behavioral status at discharge: oriented Functional status at discharge: independent ambulation Overall status at discharge: patient is progressing back to baseline Time Spent with Patient Time attestation: Total time spent providing and/or coordinating discharge services: Time spent: Less than 30 minutes Objective Labs 07/28/22 06:40 07/26/22 09:57 Labs: Laboratory Results - last 24 hr 07/28/22 06:40 Hgb 8.7 L Hct 25.2 L Exam Vital Signs (past 8 hours): Blood pressure 121/53, pulse 91, temperature 97.8? Narrative Exam Narrative: Abdomen is soft, nontender. Lochia is minimal. Extremities with trace edema, nontender. Discharge Plan Discharge Plan Patient Disposition: Home Discharge orders & Medications Prescriptions: Continued ferrous sulfate [Feosol] 325 mg (65 mg iron) tablet 325 mg PO DAILY prenat.vits,ayesha,ezj-nvvo-vuaun Tablet 1 tab PO DAILY Discontinued sumatriptan succinate 50 mg tablet See Rx Instructions PO .COMPLEX Qty: 10 2RF Patient Comments: pt did not cope well with GI side effects. has not taken in over a month Rx Instructions: take 1 tab at onset of headache; if no relief may repeat 1 tab after at least 2 hrs; max = 4 tabs/24 hr PO ursodiol 300 mg capsule 300 mg PO TID Qty: 90 1RF Patient Comments: pt stopped taking because itching went away Follow up/Referrals: Joe Winters [Primary Care Provider] - Isauro Romano MD [Physician] - 6 Weeks Diet/Activity/Treatments Diet: Regular Activity: Nothing in vagina for 6 weeks Skin/Wound/Dressing Care Report to your healthcare provider any signs of infection, such as:: chills, fever and increased pain Discharge Data Primary Care Provider: Joe Winters Attending Provider: Isauro Romano Admit Date/Time: 07/26/22 07:02
[2022-07-28 13:49] VITALS: BP 132/73; PULSE 80; RESP 17; TEMP 36.2
[2022-07-28 14:06] VITALS: BP 132/73; PULSE 80; RESP 17; TEMP 36.2
== END 2022-07-28 17:00 | disposition home or self-care (01) | DRG 807 ==
PROVIDERS: Nurse Practitioner Obstetrics & Gynecology; Admitting Provider Obstetrics & Gynecology; Referring Provider Obstetrics & Gynecology; Visit Provider Obstetrics & Gynecology
DX: O99.214 Obesity complicating childbirth (principal); Z37.0 Single live birth; E66.01 Morbid (severe) obesity due to excess calories; Z3A.40 40 weeks gestation of pregnancy; O70.0 First degree perineal laceration during delivery; O76 Abnormality in fetal heart rate and rhythm complicating labor and delivery; O99.02 Anemia complicating childbirth; D64.9 Anemia, unspecified
CPT/HCPCS: 36415; 59050; 59200; 80053; 85014; 85018; 85025; 86850; 86900; 86901; G0378; G0379; J1885; J2405; J2590

== ENCOUNTER 2022-09-27 06:47 | Day surgery (SDC) | payer OTHER, SELFPAY ==
[2022-09-27 07:02] VITALS: BP 120/77; PULSE 81; RESP 17; TEMP 36.9; O2SAT 99; BMI 45.5
[2022-09-27] MEDS: LACTATED RINGERS 1,000 ML 42 ML IV (07:25)
--- NOTE | 2022-09-27 07:39 | PM.PREOP ---
Pre-operative Note COVID-19 COVID-19 status: Not tested Criteria for continued procedure: Non-surgical alternatives not available or appropriate per current SOC Interval Note History & Physical reviewed/Exam performed by Physician: Yes Changes to H&P: No
[2022-09-27] MEDS: SCOPOLAMINE 1 PATCH TOP (08:16)
--- NOTE | 2022-09-27 08:26 | SUR.OPER ---
Lithotomy on padded OR bed, head on pillow, arms secured on padded arm boards at <90 degrees abduction. Legs secured in padded yellow fins stirrups.
[2022-09-27] MEDS: BUPIVACAINE 0.5% (PF) 30 ML, EPINEPHrine 0.15 MG INJ (08:31)
[2022-09-27 08:50] VITALS: BP 124/69; PULSE 99; RESP 16; TEMP 36.3; O2SAT 98
[2022-09-27 08:55] VITALS: BP 117/73; PULSE 92; RESP 12; O2SAT 99
--- NOTE | 2022-09-27 08:55 | SUR.PHASEI ---
0850 - Received to PACU after general anesthesia. Airway patent, self maintained. Report from YOSSI Amos and VARUN Logan.
[2022-09-27 09:00] VITALS: BP 120/68; PULSE 93; RESP 20; O2SAT 98
--- NOTE | 2022-09-27 09:00 | PM.GYNOP.1 ---
Operative Date/Time/Diagnoses Date of procedure: 09/27/22 Time of procedure: 08:05 Pre-op diagnosis: Request for sterilization Post-op diagnosis: same Procedure & Clinicians Procedure: Procedures Operation Date: 09/27/22 07:45 Actual Procedure Side Surgeon p Laparoscopic Salpingectomy, attempted, aborted Bilateral Isauro Romano MD Indications: Sophy is a 26-year-old status post vaginal delivery in July 2022 who is admitted today for laparoscopic bilateral salpingectomy for purpose of elective sterilization. Surgeon: Isauro Romano Anesthesia Type: General Operative Notes Findings: None Closure Type: primary Specimen(s): none Estimated blood loss (mL): 5 Blood products transfused: none Procedure in detail: With the patient under satisfactory general anesthesia in the modified dorsal lithotomy position, the abdomen, perineum, and vagina were prepped and draped in the usual manner for laparoscopy. A pre-surgical safety time-out was then taken in accordance with [facility] Main OR policies. The umbilicus was infiltrated with 0.5% Marcaine with epinephrine and towel clips were applied to the lateral aspects of the umbilicus on both sides. Verres needle was introduced through the base of the umbilicus and the abdomen insufflated with 3.5L carbon dioxide. A 5 mm transverse incision was then made in the skin of the inferior umbilicus through which a 12 cm long 5 mm trocar was introduced through the incision into the abdominal cavity. Unfortunately despite numerous attempts, the abdominal cavity could not be entered. The infraumbilical incision was then extended and open laparoscopy attempted. The fascia was grasped with Aquiles clamps and incised with Metzenbaum scissors. The defect was explored with the benefit of S and appendiceal retractors but once again entry into the peritoneal cavity could not be achieved due to the depth of the infraumbilical abdominal wall. After nearly an hour of attempting to enter the abdominal cavity, the decision was made for safety reasons to abort the procedure. The fascia was closed with 0 Vicryl interrupted and the skin edges brought together with 4-0 Vicryl interrupted in inverted interrupted stitches. An appropriate dressing was applied and the patient was awakened from anesthesia. She was then transferred to the PACU after having tolerated the procedure well and the results of the procedure itself will be discussed at length with her in PACU prior to discharge. Complications: other (Unable to complete scheduled procedure) Post-operative Condition: stable Disposition: PACU Plan for aftercare: Routine PACU care. Patient will follow-up in 2 weeks and will discuss options for either sterilization or long-acting reversible contraception.
[2022-09-27 09:05] VITALS: BP 125/71; PULSE 69; RESP 18; TEMP 36.2; O2SAT 96
[2022-09-27] MEDS: KETOROLAC 30 MG/ML VIAL IV (09:10)
[2022-09-27] MEDS: HYDROCODONE/ACET 5/325 TABLET 1 TAB PO (09:12)
[2022-09-27] MEDS: hydrOXYzine pamoate 25 MG CAPSULE PO (09:12)
[2022-09-27 09:20] VITALS: BP 118/76; PULSE 67; RESP 12; TEMP 36.2; O2SAT 96
== END 2022-09-27 09:41 | disposition home or self-care (01) ==
PROVIDERS: PCP Physician Assistant; Referring Provider Obstetrics & Gynecology; Visit Provider Obstetrics & Gynecology
PROC: 0UT74ZZ Resection of Bilateral Fallopian Tubes, Percutaneous Endoscopic Approach (ICD-10-PCS; CPT 58661; principal; 2022-09-27 07:45)
DX: Z30.2 Encounter for sterilization (principal); Z53.8 Procedure and treatment not carried out for other reasons
CPT/HCPCS: 58661; J0171; J1100; J1170; J1885; J2405; J2704; J3010; J3490

== ENCOUNTER 2022-11-25 12:51 | Emergency (ER) | payer OTHER, SELFPAY ==
[2022-11-25 13:04] VITALS: BP 150/82; PULSE 93; RESP 17; TEMP 36.4; O2SAT 100; BMI 45.1
[2022-11-25 13:28] LABS: COVID19 -Nasal RAPID Negative (Negative)
--- NOTE | 2022-11-25 16:12 | DI.CT.S_ITS ---
PROCEDURE: CT HEAD/BRAIN WO CON INDICATIONS: headache TECHNIQUE: Noncontrast 4.5 mm thick angled axial sections acquired from the foramen magnum to the vertex, with coronal and sagittal reformats. For radiation dose reduction, the following was used: automated exposure control, adjustment of mA and/or kV according to patient size. COMPARISON: None. FINDINGS: Image quality: Excellent. CSF spaces: Basal cisterns are patent. No extra-axial fluid collections. Ventricles are normal in size and shape. Brain: No midline shift. No intracranial masses or hemorrhage. Duncan-white matter interface is normal. Skull and face: Calvarium and visualized facial bones are intact, without suspicious lesions. Sinuses: Visualized sinuses and mastoids are clear. IMPRESSION: No acute intracranial abnormality. Dictated by: Lelo Bass M.D. on 11/25/2022 at 16:41 Approved by: Lelo Bass M.D. on 11/25/2022 at 16:45
[2022-11-25] MEDS: diphenhydrAMINE 50 MG/ML VIAL 25 MG IV (16:47)
[2022-11-25] MEDS: DEXAMETHASONE 10 MG/ML VIAL IV (16:47)
[2022-11-25] MEDS: SODIUM CHLORIDE 0.9% 1,000 ML 1000 ML IV (16:48)
[2022-11-25] MEDS: METOCLOPRAMIDE 10 MG/2 ML INJ IV (16:48)
[2022-11-25] MEDS: ACETAMINOPHEN 325 MG TABLET 975 MG PO (16:48)
[2022-11-25 17:07] LABS: Alanine Aminotransferase 176 IU/L (<35); Albumin 4.3 g/dL (3.5-5.0); Albumin Globulin Ratio 1.2 (1.0-2.8); Alkaline Phosphatase 160 U/L (38-126); Aspartate Aminotransferase 82 IU/L (14-36); BUN Creatinine Ratio 23.3 (6-22); Bilirubin Total 0.5 mg/dL (0.2-1.3); Blood Urea Nitrogen 17 mg/dL (7-17); Calcium 9.2 mg/dL (8.4-10.2); Carbon Dioxide 22 mmol/L (22-32); Chloride 106 mmol/L (98-107); Estimated Glomerular Filt Rate > 60 mL/min (>60); Globulin 3.7 g/dL (1.7-4.1); Glucose 82 mg/dL (70-100); HEMOLYSIS < 15 (0-50); Potassium 3.6 mmol/L (3.4-5.1); Sodium 140 mmol/L (137-145)
[2022-11-25 17:18] LABS: Add Manual Diff / Slide Review SLIDE REVIEW; Basophils Absolute Auto 0 /uL (0-100); Basophils Percent Auto 0.6 % (0-2); Eosinophils Absolute Auto 100 /uL (0-450); Eosinophils Percent Auto 1.5 % (2-4); Hemoglobin 11.8 g/dL (12.0-16.0); Lymphocytes Absolute Auto 1700 /uL (1100-4500); Lymphocytes Percent Auto 48.6 % (25-40); Mean Corpuscular HGB Conc 32.9 % (30-36); Mean Corpuscular Hemoglobin 24.4 PG (26-34); Mean Corpuscular Volume 74.3 fL (80-100); Monocytes Absolute Auto 200 /uL (0-900); Monocytes Percent Auto 6.6 % (3-14); Neutrophils Absolute Auto 1500 /uL (1500-7000); Neutrophils Percent Auto 42.7 % (50-75); Platelet Count 156 X10^3/uL (150-400); Red Blood Cell Count 4.84 X10^6/uL (4.0-5.2); Red Cell Distribution Width 17.3 % (11.6-14.8); White Blood Cell Count 3.5 X10^3/uL (4.5-11.0)
[2022-11-25 17:19] LABS: RBC Morphology Normal Morphology; Reactive Lymphocytes 2+
[2022-11-25 18:31] VITALS: BP 121/56; PULSE 89; RESP 16; O2SAT 99
--- NOTE | 2022-11-25 19:35 | ED_ITS ---
HPI - Headache <Hector Tolbert PA-C - Last Filed: 12/03/22 15:00> General Chief Complaint: Headache Stated Complaint: headache T-7/N/lightheaded Time Seen by Provider: 11/25/22 15:29 Mode of arrival: Ambulatory History of Present Illness HPI Narrative: 27-year-old female with past medical history anemia, migraines, depression presents to the ED with a headache that has been ongoing for a week. Patient has tried Tylenol and sumatriptan with little relief. Patient also complains of feeling lightheaded, fatigued and nauseous. Patient describes the headache is different from her prior headaches, feels like it is more pressure inside her head. 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 Patient denies chest pain, shortness of breath, fever, chills, neck pain, neck stiffness, vomiting, abdominal pain, dizziness, syncope. Related Data Home Medications Medication Instructions Recorded Confirmed ferrous sulfate 325 mg (65 mg 325 mg PO DAILY 03/21/22 09/27/22 iron) tablet (Feosol) Allergies Allergy/AdvReac Type Severity Reaction Status Date / Time No Known Drug Allergies Allergy Verified 11/25/22 13:04 Review of Systems <Hector Tolbert PA-C - Last Filed: 12/03/22 15:00> Review of Systems ROS Unobtainable: All systems reviewed & are unremarkable except as noted in HPI and below Constitutional Constitutional: Denies chills, Denies fatigue, Denies fever(s), Denies frequent falls, Reports headache(s), Denies lethargy and Denies weakness Eyes Eyes: Denies change in vision, Denies eye discharge, Denies irritation and Denies loss of vision ENT Ears, Nose, Mouth, and Throat: Denies change in voice, Denies dizziness, Reports headache(s), Denies neck pain, Denies sore throat and Denies throat swelling Cardiovascular Cardiovascular: Denies chest pain, Denies irregular heart rhythm, Reports lightheadedness, Denies palpitations, Denies dyspnea, Denies dyspnea on exertion and Denies orthopnea Respiratory Respiratory: Denies cough, Denies dyspnea, Denies dyspnea on exertion and Denies wheezing Gastrointestinal Gastrointestinal: Denies abdominal pain, Denies change in bowel habits, Denies diarrhea, Reports nausea and Denies vomiting Genitourinary Genitourinary: Denies hematuria, Denies flank pain, Denies urinary incontinence and Denies urinary urgency Musculoskeletal Musculoskeletal: Denies back pain, Denies muscle weakness, Denies neck pain, Denies numbness and Denies tingling Integumentary/Breasts Skin/Breast: Denies pruritus, Denies erythema, Denies rash and Denies wounds Neurologic Neurologic: Denies behavioral changes, Denies confusion, Denies dizziness, Denies frequent falls, Reports headache(s), Denies loss of vision, Denies numbness, Denies tingling and Denies weakness Psychiatric Psychiatric: Denies anxiety, Denies behavioral changes, Denies confusion, Denies depression, Denies homicidal ideation and Denies suicidal ideation Endocrine Endocrine: Denies fatigue, Denies flushing and Denies palpitations Hematologic/Lymphatic Hematologic/Lymphatic: Denies easy bruising Allergic/Immunologic Allergic/Immunologic: Denies urticaria, Denies throat swelling and Denies wheezing Patient History <Hector Tolbert PA-C - Last Filed: 12/03/22 15:00> Medical History Abnormal Pap smear of cervix (~2020) Acne (~2010) Depression (~2020) Headache (~2010) Human papilloma virus (~2020) Migraine with aura, not intractable (~2010) depression Restless leg syndrome (~2020) Syncope Surgical History Anesthesia History of surgery (~01/02/21) No pertinent past surgical history Family History Father Hypertension Myocardial infarction Mother Hypertension Mental health problem Grandmother Hypertension Skin cancer History of nephrectomy Coronary artery disease Cancer Mental health problem Grandfather Myocardial infarction Grandmother Diabetes mellitus Hyperlipidemia Hypertension Grandfather Myocardial infarction Sister Asthma Social History marital status: number of children: 1 household members: spouse and children lives independently: Yes housing: house pets and animals: Yes (1 dog; aware of toxo precautions) education level: college ([employer] degree) occupational status: unemployed current occupational exposures/hazards: No special herb needs: No travel history: recent (domestic cross-country move from [place]) seatbelt use: always water heater temp set < 120 deg: Yes working smoke detector in home: Yes fire extinguisher in home: Yes carbon monox detector in home: Yes firearms in home: No do you feel safe at home: Yes Smoking Status: Never smoker second hand exposure: No alcohol intake: former substance use type: does not use during the past year weight has: other (fluctuates; only now ~1 year ) well-balanced diet: daily or most days daily servings fruits/ve-4 caffeine: Yes (0-1 cups coffee/day; aware of 200mg limit) Type(s) of exercise: walking frequency: daily duration: 15-30 minutes/day Smoking Status: Never smoker alcohol intake frequency: a few times a week Substance Use Type: does not use Exam <Hector Tolbert PA-C - Last Filed: 12/03/22 15:00> Narrative Exam Narrative: Const General:?cooperative, healthy appearing and comfortable [facility] Head:?normal to inspection Ears:?hearing grossly normal bilaterally Nose:?external nose normal Face and sinus:?normal facial exam and sinuses nontender Mouth:?oral mucosae normal Throat:?posterior oropharynx normal Eyes General:?appearance normal, both eyes and all related structures; vision grossly intact Neck Neck:?normal visual inspection and no lymphadenopathy noted Resp Effort & Inspection:?normal respiratory effort Auscultation:?clear to auscultation bilaterally Cardio Rate:?regular rate Rhythm:?regular rhythm Neuro General:?patient alert, patient awake and patient oriented x3; PERRLA; CN 1 through 12 intact bilaterally; gait is normal. Initial Vital Signs Initial Vital Signs: Vital Signs Temperature 97.5 F L 11/25/22 13:04 Pulse Rate 93 H 11/25/22 13:04 Respiratory Rate 17 11/25/22 13:04 Blood Pressure 150/82 H 11/25/22 13:04 Pulse Oximetry 100 11/25/22 13:04 Oxygen Delivery Method Room Air 11/25/22 13:04 <Estrellita Moralez DO - Last Filed: 12/03/22 19:19> Initial Vital Signs Initial Vital Signs: Vital Signs Temperature 97.5 F L 11/25/22 13:04 Pulse Rate 93 H 11/25/22 13:04 Respiratory Rate 17 11/25/22 13:04 Blood Pressure 150/82 H 11/25/22 13:04 Pulse Oximetry 100 11/25/22 13:04 Oxygen Delivery Method Room Air 11/25/22 13:04 Course <Hector Tolbert PA-C - Last Filed: 12/03/22 15:00> Orders Ordered: Discontinued Medications Acetaminophen (Acetaminophen 325 Mg Tablet) 975 mg PO NOW ONE Stop: 11/25/22 16:13 Last Admin: 11/25/22 16:48 Dose: 975 mg Documented By: BS Dexamethasone (Dexamethasone 10 Mg/Ml Vial) 10 mg IV NOW ONE Stop: 11/25/22 16:13 Last Admin: 11/25/22 16:47 Dose: 10 mg Documented By: BS Diphenhydramine HCl (Diphenhydramine 50 Mg/Ml Vial) 25 mg IV NOW ONE Stop: 11/25/22 16:13 Last Admin: 11/25/22 16:47 Dose: 25 mg Documented By: BS Sodium Chloride (Normal Saline 0.9%) 1,000 mls @ 1,000 mls/hr IV BOLUS ONE Stop: 11/25/22 17:15 Last Infusion: 11/25/22 18:15 Dose: 0 mls/hr Documented By: Admin: 11/25/22 16:48 Dose: 1,000 mls/hr Documented By: BS Metoclopramide HCl (Metoclopramide 10 Mg/2 Ml Inj) 10 mg IV NOW ONE Stop: 11/25/22 16:13 Last Admin: 11/25/22 16:48 Dose: 10 mg Documented By: ZACHARY Vital Signs Vital signs: Vital Signs - 8 hr 11/25/22 13:04 11/25/22 18:31 Temperature 97.5 F L Pulse Rate 93 H 89 Respiratory Rate 17 16 Blood Pressure 150/82 H 121/56 L Pulse Oximetry 100 99 Oxygen Delivery Method Room Air Room Air <Estrellita Moralez DO - Last Filed: 12/03/22 19:19> Orders Ordered: Discontinued Medications Acetaminophen (Acetaminophen 325 Mg Tablet) 975 mg PO NOW ONE Stop: 11/25/22 16:13 Last Admin: 11/25/22 16:48 Dose: 975 mg Documented By: BS Dexamethasone (Dexamethasone 10 Mg/Ml Vial) 10 mg IV NOW ONE Stop: 11/25/22 16:13 Last Admin: 11/25/22 16:47 Dose: 10 mg Documented By: BS Diphenhydramine HCl (Diphenhydramine 50 Mg/Ml Vial) 25 mg IV NOW ONE Stop: 11/25/22 16:13 Last Admin: 11/25/22 16:47 Dose: 25 mg Documented By: BS Sodium Chloride (Normal Saline 0.9%) 1,000 mls @ 1,000 mls/hr IV BOLUS ONE Stop: 11/25/22 17:15 Last Infusion: 11/25/22 18:15 Dose: 0 mls/hr Documented By: Admin: 11/25/22 16:48 Dose: 1,000 mls/hr Documented By: BS Metoclopramide HCl (Metoclopramide 10 Mg/2 Ml Inj) 10 mg IV NOW ONE Stop: 11/25/22 16:13 Last Admin: 11/25/22 16:48 Dose: 10 mg Documented By: ZACHARY Vital Signs Vital signs: Vital Signs - 8 hr 11/25/22 13:04 11/25/22 18:31 Temperature 97.5 F L Pulse Rate 93 H 89 Respiratory Rate 17 16 Blood Pressure 150/82 H 121/56 L Pulse Oximetry 100 99 Oxygen Delivery Method Room Air Room Air MDM - Headache <Hector Tolbert PA-C - Last Filed: 12/03/22 15:00> Lab Data 11/25/22 16:45 11/25/22 16:45 Labs: Lab Results 11/25/22 11/25/22 11/25/22 Range/Units 13:08 16:45 16:45 WBC 3.5 L (4.5-11.0) X10^3/uL RBC 4.84 (4.0-5.2) X10^6/uL Hgb 11.8 L (12.0-16.0) g/dL Hct 36.0 (36-46) % MCV 74.3 L (80-100) fL MCH 24.4 L (26-34) PG MCHC 32.9 (30-36) % RDW 17.3 H (11.6-14.8) % Plt Count 156 (150-400) X10^3/uL Neut % (Auto) 42.7 L (50-75) % Lymph % (Auto) 48.6 H (25-40) % Rich % (Auto) 6.6 (3-14) % Eos % (Auto) 1.5 L (2-4) % Baso % (Auto) 0.6 (0-2) % Neut # (Auto) 1500 (9360-0170) /uL Lymph # (Auto) 1700 (1972-6399) /uL Rich # (Auto) 200 (0-900) /uL Eos # (Auto) 100 (0-450) /uL Baso # (Auto) 0 (0-100) /uL Reactive Lymphocytes 2+ H RBC Morphology Normal morphology Sodium 140 (137-145) mmol/L Potassium 3.6 (3.4-5.1) mmol/L Chloride 106 (98-107) mmol/L Carbon Dioxide 22 (22-32) mmol/L BUN 17 (7-17) mg/dL Creatinine 0.73 (0.52-1.04) mg/dL Estimated GFR > 60 (>60) mL/min BUN/Creatinine Ratio 23.3 H (6-22) Glucose 82 (70-100) mg/dL Calcium 9.2 (8.4-10.2) mg/dL Total Bilirubin 0.5 (0.2-1.3) mg/dL AST 82 H (14-36) IU/L ALT 176 H (<35) IU/L Alkaline Phosphatase 160 H (38-126) U/L Total Protein 8.0 (6.3-8.2) g/dL Albumin 4.3 (3.5-5.0) g/dL Globulin 3.7 (1.7-4.1) g/dL Albumin/Globulin Ratio 1.2 (1.0-2.8) SARS-CoV-2 (PCR) Negative (Negative) MDM Narrative Medical decision making narrative: 27-year-old female with past medical history anemia, migraines, depression presents to the ED with a headache that has been ongoing for a week. Concern for primary headache versus CVA versus IIH versus other. Will obtain CT head. Will give Tylenol, Benadryl, Reglan, dexamethasone, IV fluids. Will reassess. CT head without acute findings. Patient's symptoms resolved with the medications. Liver enzymes elevated, all other labs within normal limits. Recommend follow-up with PCP to trend liver enzymes. Recommend good hydration. ED return precautions discussed with patient. Patient verbalized understanding. Medical records reviewed: Yes <Estrellita Moralez, DO - Last Filed: 12/03/22 19:19> Lab Data Labs: Lab Results 11/25/22 11/25/22 11/25/22 Range/Units 13:08 16:45 16:45 WBC 3.5 L (4.5-11.0) X10^3/uL RBC 4.84 (4.0-5.2) X10^6/uL Hgb 11.8 L (12.0-16.0) g/dL Hct 36.0 (36-46) % MCV 74.3 L (80-100) fL MCH 24.4 L (26-34) PG MCHC 32.9 (30-36) % RDW 17.3 H (11.6-14.8) % Plt Count 156 (150-400) X10^3/uL Neut % (Auto) 42.7 L (50-75) % Lymph % (Auto) 48.6 H (25-40) % Rich % (Auto) 6.6 (3-14) % Eos % (Auto) 1.5 L (2-4) % Baso % (Auto) 0.6 (0-2) % Neut # (Auto) 1500 (6972-1764) /uL Lymph # (Auto) 1700 (3636-5038) /uL Rich # (Auto) 200 (0-900) /uL Eos # (Auto) 100 (0-450) /uL Baso # (Auto) 0 (0-100) /uL Reactive Lymphocytes 2+ H RBC Morphology Normal morphology Sodium 140 (137-145) mmol/L Potassium 3.6 (3.4-5.1) mmol/L Chloride 106 (98-107) mmol/L Carbon Dioxide 22 (22-32) mmol/L BUN 17 (7-17) mg/dL Creatinine 0.73 (0.52-1.04) mg/dL Estimated GFR > 60 (>60) mL/min BUN/Creatinine Ratio 23.3 H (6-22) Glucose 82 (70-100) mg/dL Calcium 9.2 (8.4-10.2) mg/dL Total Bilirubin 0.5 (0.2-1.3) mg/dL AST 82 H (14-36) IU/L ALT 176 H (<35) IU/L Alkaline Phosphatase 160 H (38-126) U/L Total Protein 8.0 (6.3-8.2) g/dL Albumin 4.3 (3.5-5.0) g/dL Globulin 3.7 (1.7-4.1) g/dL Albumin/Globulin Ratio 1.2 (1.0-2.8) SARS-CoV-2 (PCR) Negative (Negative) Discharge Plan Departure Patient Disposition: Home Clinical Impression: Headache Instructions: DI for Headache Activity Restrictions/Additional Instructions: You were evaluated in the ED today for a headache. Your CT head was normal. Y our labs show some elevated liver enzymes but was otherwise normal. Please follow-up with your PCP to trend and re-evaluate your liver enzymes. Your headache resolved with the medications. Please continue to stay well hydrated. Return to the ED if you have worsening symptoms, persistent vomiting. Prescriptions: No Action ferrous sulfate [Feosol] 325 mg (65 mg iron) tablet 325 mg PO DAILY Referrals: Allison Robledo PA-C [Primary Care Provider] - Stand Alone Forms: Patient Portal/API <Estrellita Moralez DO - Last Filed: 12/03/22 19:19> Cosign ED Attending Coscharlineature Attestation: I was immediately available in the department for consultation. Documentation has been reviewed.
== END 2022-11-25 18:32 | disposition home or self-care (01) ==
PROVIDERS: Emergency Medicine; Emergency Provider Student in an Organized Health Care Education/Training Program; PCP Physician Assistant
DX: R51.9 Headache, unspecified (principal); R42 Dizziness and giddiness; Z20.822 Contact with and (suspected) exposure to COVID-19
CPT/HCPCS: 36415; 70450; 80053; 85025; 87635; 96361; 96374; 96375; 99284; C9803; J1100; J1200; J2765

== ENCOUNTER → 2023-01-25 11:20 | Outpatient (CLI) | payer OTHER, SELFPAY ==
--- NOTE | 2023-01-25 | DI.MRI.S_ITS ---
PROCEDURE: MR HEAD/BRAIN WO CON INDICATIONS: Migraine TECHNIQUE: Noncontrast axial T1 spin echo, axial T2 fast spin echo, sagittal and axial FLAIR, coronal T2 fast spin echo, axial gradient echo, axial diffusion and ADC through the brain. COMPARISON: [facility], CT, CT HEAD/BRAIN WO CON, 11/25/2022, 16:25. FINDINGS: Image quality: Excellent. CSF Spaces: Basal cisterns are patent. No extra-axial fluid collections. Ventricles are normal in size and shape. Brain: No intracranial masses or hemorrhage. Duncan/white matter interface is normal. Brainstem appears normal. Diffusion-weighted images demonstrate no acute ischemic insult. No chronic ischemic insults. Normal intravascular flow voids are present. Skull and face: Calvarium has normal marrow signal. Orbits appear normal. Sinuses: Sinuses and mastoids are clear. IMPRESSION: 1. No explanation for migraine. 2. No acute process. No recent infarct. Dictated by: Lelo Bass M.D. on 01/27/2023 at 9:56 Approved by: Lelo Bass M.D. on 01/27/2023 at 9:57
== END ==
PROVIDERS: PCP Physician Assistant; Referring Provider Student in an Organized Health Care Education/Training Program; Visit Provider Student in an Organized Health Care Education/Training Program
DX: G43.909 Migraine, unspecified, not intractable, without status migrainosus (principal)
CPT/HCPCS: 70551